=== PATIENT | male | born 1990 | race African-American/Black ===

== ENCOUNTER 2016-10-01 09:01 | Emergency (ER) | payer BC ==
[~2016-10-01 09:01] MED LIST: BACTRIM DS TABL1 TA1 PO; FLEXERIL10 MG PO; KEFLEX500 M1 PO; MOTRIN600 M1 PO; NAPROSYN500 MG PO; NO MEDICATIONS; SILVADENE TOP; TYLENOL #3 PO; VOLTAREN75 MG PO
== END 2016-10-01 09:09 | disposition home or self-care (01) ==
LOC: SED 09:01
DX: R11.2 Nausea with vomiting, unspecified (principal); F17.210 Nicotine dependence, cigarettes, uncomplicated
CPT/HCPCS: 99282

== ENCOUNTER 2016-12-30 18:13 | Emergency (ER) | payer SELFPAY | END 2016-12-30 19:59 | disposition home or self-care (01) | LOC: SED 18:13 | DX: S23.3XXA Sprain of ligaments of thoracic spine, initial encounter (principal); F17.200 Nicotine dependence, unspecified, uncomplicated; V49.88XA Car occupant (driver) (passenger) injured in other specified transport accidents, initial encounter | CPT/HCPCS: 99283 ==

== ENCOUNTER 2017-01-01 21:07 | Emergency (ER) | payer SELFPAY ==
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
== END 2017-01-01 22:35 | disposition home or self-care (01) ==
LOC: SED 21:07
DX: S46.911A Strain of unspecified muscle, fascia and tendon at shoulder and upper arm level, right arm, initial encounter (principal); S70.01XA Contusion of right hip, initial encounter; X58.XXXA Exposure to other specified factors, initial encounter; Y92.89 Other specified places as the place of occurrence of the external cause
CPT/HCPCS: 73030; 99283

== ENCOUNTER 2017-01-04 01:05 | Emergency (ER) | payer OTHER ==
[2017-01-04] MEDS ORDERED: NO MEDICATIONS (01:12)
== END 2017-01-04 01:37 | disposition home or self-care (01) ==
LOC: SED 01:05
DX: S46.911A Strain of unspecified muscle, fascia and tendon at shoulder and upper arm level, right arm, initial encounter (principal); F17.200 Nicotine dependence, unspecified, uncomplicated; V89.2XXA Person injured in unspecified motor-vehicle accident, traffic, initial encounter; Y92.410 Unspecified street and highway as the place of occurrence of the external cause
CPT/HCPCS: 99283

== ENCOUNTER 2017-01-06 23:53 | Emergency (ER) | payer SELFPAY ==
[2017-01-07] MEDS ORDERED: IBUPROFEN800 MG (00:08)
[2017-01-07] MEDS ORDERED: ROBAXIN (00:08)
== END 2017-01-07 00:37 | disposition home or self-care (01) ==
LOC: SED 23:53
DX: S43.421A Sprain of right rotator cuff capsule, initial encounter (principal); F17.200 Nicotine dependence, unspecified, uncomplicated; V49.40XA Driver injured in collision with unspecified motor vehicles in traffic accident, initial encounter; Y92.488 Other paved roadways as the place of occurrence of the external cause
CPT/HCPCS: 99283

== ENCOUNTER 2017-02-03 19:36 | Emergency (ER) | payer BC ==
[~2017-02-03] VITALS: Ht 165.1 cm; Wt 59.0 kg
[~2017-02-03 19:36] MED LIST changes: +IBUPROFEN800 MG; +ROBAXIN
== END 2017-02-03 20:35 | disposition home or self-care (01) ==
LOC: SED 19:36
DX: R36.9 Urethral discharge, unspecified (principal); N48.89 Other specified disorders of penis; Z20.2 Contact with and (suspected) exposure to infections with a predominantly sexual mode of transmission
CPT/HCPCS: 96372; 99283; J0696